=== PATIENT | female | born 1970 | race Two or more races ===

== ENCOUNTER → 2024-04-05 | Outpatient (CLI) | payer MEDICAID, SELFPAY ==
--- NOTE | 2024-04-05 13:30 | XR_ITS ---
Examination: MRI brain without intravenous contrast. Date and time of exam: April 15, 2024 1258 hrs. Indications: Diagnosis pituitary tumor November 2023, status post pituitary tumor removal surgery December 2023 Technique: Multiple axial and sagittal images of the brain obtained. Siemens high-resolution 1.5 Rama short bore scanners utilized. Sagittal sections, T1-weighted, TR 500, TE 14, are performed. Axial sections proton-density and T2-weighted have been obtained. Inversion recovery axial images, TR 9, 260, TE 111, TI 2500. Diffusion weighted images, axial sections, TR 4800, TE 128, B value 1000 Axial sections, ADC map, TR 4800, TE 128 Findings: Enlargement of the sella turcica is not present. The optic chiasm and infundibular are not remarkable. Prepontine and interpeduncular cisterns are not enlarged. There is no localized enlargement of the medulla or thea. Fourth ventricle and cerebellar tonsils appear normal in position. No subacute area of hemorrhage density is seen. Mass in the cerebellopontine angle region is not evident. Globes symmetrical. Orbital musculature including medial lateral rectus muscles do not exhibit abnormality. Diffusion-weighted images demonstrate no focus of restricted diffusion. Increased white matter signal not seen Probable postsurgical changes in the sphenoid sinus Pituitary macroadenoma is not identified No disruption of the optic chiasm Mass effect upon the ventricular system is not identified. Impression: This patient should return for post contrast MRI images centered at the pituitary to best exclude pituitary microadenoma
== END | disposition home or self-care (01) ==
LOC: SMRI 12:26
PROVIDERS: Referring Provider Nurse Practitioner Family; Visit Provider Nurse Practitioner Family
DX: E27.2 Addisonian crisis (principal)
CPT/HCPCS: 70551

== ENCOUNTER → 2024-05-08 | Outpatient (CLI) | payer MEDICAID, SELFPAY ==
--- NOTE | 2024-05-08 13:45 | XR_ITS ---
Examination: Pelvic ultrasound, transabdominal, complete Technique: Transabdominal ultrasound of the pelvis performed using grayscale imaging Date and time of exam: May 08, 2024, 1419 hrs. Indications: Pelvic pain beginning 20 years ago Findings: Uterus 8.1 cm endometrial stripe 0.9 cm Uterine fundal area of fibroid degeneration 2.6 x 2.6 cm Right ovary 3.1 cm arterial flow Left ovary 2.4 cm arterial flow Impression: Uterine fundal area of fibroid degeneration 2.6 x 1.6 x 2.6 cm
--- NOTE | 2024-05-08 13:45 | XR_ITS ---
Examination: Transvaginal ultrasound of the pelvis, complete Technique: Transvaginal sonographic images pelvis performed using munroe scale imaging Exam date and time: May 08, 2024 at 1428 hrs. Indications: Pelvic pain 20 years Findings: Uterus 8.9 cm endometrial stripe 0.9 cm Fundal uterine areas of fibroid degeneration 1.7 x 1.5 cm, 2.4 x 2.9 cm, 3.4 x 3.3 cm Ovaries obscured by bowel gas Impression: Multiple uterine areas of fibroid degeneration, recommend 6 month follow-up transvaginal pelvic sonography.
== END | disposition home or self-care (01) ==
PROVIDERS: PCP Nurse Practitioner Family; Referring Provider Nurse Practitioner Family; Visit Provider Nurse Practitioner Family
DX: D25.9 Leiomyoma of uterus, unspecified (principal)
CPT/HCPCS: 76830; 76856

== ENCOUNTER → 2024-06-04 | Outpatient (CLI) | payer MEDICAID, SELFPAY ==
--- NOTE | 2024-06-04 13:15 | XR_ITS ---
Examination: Screening digital mammography, bilateral Computer aided detection 3-D breast Tomosynthesis, bilateral Date and time of exam: 06/04/2024, 1:03 PM Comparisons: April 2020 Indications: Screening Technique: Nonmagnified MLO, CC views of the breasts to been obtained, reconstructed from 3-D Tomosynthesis images. R2 computer aided detection program utilized for evaluation of suspicious masses and/or abnormal calcifications. 3-D Tomosynthesis images obtained. Technologist: Findings: The breasts are heterogeneously dense, which may obscure small masses. No evidence of abnormal masses or suspicious calcifications. Bilateral postbiopsy marker clips. Impression: BI-RADS category 2: Benign findings Recommend 1 year follow-up mammogram
== END | disposition home or self-care (01) ==
LOC: CDIM 12:56
PROVIDERS: Referring Provider Nurse Practitioner Family; Visit Provider Nurse Practitioner Family
DX: Z12.31 Encounter for screening mammogram for malignant neoplasm of breast (principal); R92.323 Mammographic fibroglandular density, bilateral breasts
CPT/HCPCS: 77063; 77067

== ENCOUNTER → 2024-06-18 | Outpatient (CLI) | payer MEDICAID, SELFPAY ==
--- NOTE | 2024-06-18 16:00 | XR_ITS ---
Examination: MRI brain with intravenous contrast Technique: Multiple sagittal axial coronal brain MRI images post intravenous ministration 12 cc gadolinium Exam date and time: April 20, 2024 1719 hrs. Comparison March 2024 Indications: Blurred vision 2 years, clinical diagnosis pituitary adenoma Findings: Empty sella syndrome, no pituitary tissue noted No disruption of the optic chiasm No abnormal cerebellar or cerebral enhancement Ventricles are normal size No mass effect upon the ventricular system Impression: Empty sella syndrome, no pituitary tissue identified
== END | disposition home or self-care (01) ==
LOC: SMRI 16:07
PROVIDERS: PCP Nurse Practitioner Family; Referring Provider Nurse Practitioner Family; Visit Provider Nurse Practitioner Family
DX: E27.2 Addisonian crisis (principal)
CPT/HCPCS: 70552; A9579

== ENCOUNTER → 2024-10-28 | Outpatient (CLI) | payer MEDICAID, SELFPAY ==
--- NOTE | 2024-10-28 15:08 | XR_ITS ---
Examination: PA lateral chest 2 views TECHNIQUE: Upright PA lateral chest 2 views Date and time: October 28, 2024 1515 hours INDICATIONS: Chest pain wheezing beginning one month ago FINDINGS: Normal heart size. Lungs are clear. The osseous structures are intact IMPRESSION: No active disease
== END | disposition home or self-care (01) ==
LOC: CDIM 14:56
PROVIDERS: PCP Family Medicine; Referring Provider Nurse Practitioner Family; Visit Provider Nurse Practitioner Family
DX: R06.2 Wheezing (principal)
CPT/HCPCS: 71046

== ENCOUNTER → 2024-12-15 | Outpatient (CLI) | payer MEDICAID, SELFPAY ==
--- NOTE | 2024-12-15 10:30 | XR_ITS ---
EXAMINATION: Ultrasound soft tissue neck TECHNIQUE: Grayscale sonographic images soft tissue neck Date and time: December 15, 2024, 10:52 a.m. INDICATIONS: Bilateral neck swelling beginning 1 month ago FINDINGS: Right neck soft tissue lymph node 9 x 7 mm Left neck soft tissue lymph node 16 x 7 mm Left thyroid nodule 14 x 14 mm IMPRESSION: Cervical lymphadenopathy as above, consider 3 to 6-month ultrasound soft tissue neck follow-up Recommend dedicated thyroid sonography follow-up
== END | disposition home or self-care (01) ==
PROVIDERS: PCP Nurse Practitioner Family; Referring Provider Nurse Practitioner Family; Visit Provider Nurse Practitioner Family
DX: R59.0 Localized enlarged lymph nodes (principal)
CPT/HCPCS: 76536

== ENCOUNTER → 2025-01-29 | Outpatient (CLI) | payer MEDICAID, SELFPAY ==
--- NOTE | 2025-01-29 11:30 | XR_ITS ---
EXAMINATION: Thyroid sonography complete TECHNIQUE: Grayscale sonographic images thyroid lobes Date and time: January 29, 2025, 1117 hours, comparison December 15, 2024 INDICATIONS: Right neck soft tissue lymph node 9 mm left neck soft tissue lymph node 16 mm left thyroid nodule 14 mm on ultrasound examination soft tissue neck December 15, 2024 FINDINGS: Right thyroid 3.4 cm Lower pole cyst 3 x 3 mm Left thyroid 3.5 cm Mid pole nodule 14 x 15 x 9 mm IMPRESSION: Midpole avascular left thyroid nodule 14 x 15 x 9 mm
== END | disposition home or self-care (01) ==
PROVIDERS: PCP Student in an Organized Health Care Education/Training Program; Referring Provider Student in an Organized Health Care Education/Training Program; Visit Provider Student in an Organized Health Care Education/Training Program
DX: E04.2 Nontoxic multinodular goiter (principal)
CPT/HCPCS: 76536